=== PATIENT | female | born 1985 | race Caucasian/White ===

== ENCOUNTER 2018-06-10 14:17 | Day surgery (SDC) | payer OTHER | END 2018-06-10 20:55 | disposition home or self-care (01) | LOC: CIR.AMB 14:17 | DX: O02.1 Missed abortion (principal); Z3A.01 Less than 8 weeks gestation of pregnancy ==

== ENCOUNTER 2018-09-15 08:15 | Outpatient (CLI) | payer OTHER | END 2018-09-15 08:19 | disposition home or self-care (01) | LOC: RX STUDY 08:15 | DX: R10.2 Pelvic and perineal pain (principal) ==

== ENCOUNTER 2021-04-24 10:46 | Outpatient (CLI) | payer OTHER | END 2021-04-24 11:48 | disposition home or self-care (01) | LOC: NST 10:46 | PROVIDERS: ATTEND Obstetrics & Gynecology | DX: Z34.83 Encounter for supervision of other normal pregnancy, third trimester (principal) ==

== ENCOUNTER 2021-05-05 09:49 | Outpatient (CLI) | payer OTHER | END 2021-05-05 11:32 | disposition home or self-care (01) | LOC: NST 09:49 | PROVIDERS: ATTEND Obstetrics & Gynecology | DX: Z34.83 Encounter for supervision of other normal pregnancy, third trimester (principal) ==

== ENCOUNTER 2021-05-13 09:22 | Outpatient (CLI) | payer OTHER | END 2021-05-13 10:19 | disposition home or self-care (01) | LOC: NST 09:22 | PROVIDERS: ATTEND Obstetrics & Gynecology | DX: Z34.83 Encounter for supervision of other normal pregnancy, third trimester (principal) ==

== ENCOUNTER 2021-06-03 08:40 | Outpatient (CLI) | payer OTHER | END 2021-06-03 12:56 | disposition home or self-care (01) | LOC: NST 08:40 | PROVIDERS: ATTEND Obstetrics & Gynecology | DX: Z34.83 Encounter for supervision of other normal pregnancy, third trimester (principal) ==

== ENCOUNTER 2021-06-25 00:14 | Inpatient (IN) | payer OTHER ==
[~2021-06-25] VITALS: Ht 152.4 cm; Wt 3.2 kg
[2021-06-25] MEDS ORDERED: LOVENOX40 MG/0.4 SUBCUTANEO (00:33)
[2021-06-25] MEDS ORDERED: PRENATAL CAPLE1 EAC1 PO (00:34)
[2021-06-25] MEDS ORDERED: VALTREX1000 MG PO (00:34)
== END 2021-06-27 11:58 | disposition home or self-care (01) | DRG 787 ==
LOC: LDR 00:14 → OB/GYN 00:14
PROVIDERS: ADMIT Obstetrics & Gynecology; ATTEND Obstetrics & Gynecology
PROC: 4A1HXFZ Monitoring of Products of Conception, Cardiac Rhythm, External Approach (ICD-10-PCS; 2021-06-25)
PROC: 10907ZC Drainage of Amniotic Fluid, Therapeutic from Products of Conception, Via Natural or Artificial Opening (ICD-10-PCS; 2021-06-25)
PROC: 10D00Z1 Extraction of Products of Conception, Low, Open Approach (ICD-10-PCS; principal; 2021-06-25 13:45)
DX: O62.1 Secondary uterine inertia (principal); O98.32 Other infections with a predominantly sexual mode of transmission complicating childbirth; O76 Abnormality in fetal heart rate and rhythm complicating labor and delivery; A60.00 Herpesviral infection of urogenital system, unspecified; O99.824 Streptococcus B carrier state complicating childbirth; Z3A.38 38 weeks gestation of pregnancy; Z37.0 Single live birth

== ENCOUNTER 2024-04-14 15:01 | Outpatient (CLI) | payer OTHER ==
[~2024-04-14 15:01] MED LIST: LOVENOX40 MG/0.4 SUBCUTANEO; PRENATAL CAPLE1 EAC1 PO; VALTREX1000 MG PO
== END 2024-04-14 15:04 | disposition home or self-care (01) ==
LOC: NUCLEAR 15:01
PROVIDERS: ATTEND Internal Medicine Hematology & Oncology
DX: I82.402 Acute embolism and thrombosis of unspecified deep veins of left lower extremity (principal)

== ENCOUNTER 2024-09-14 14:59 | Emergency (ER) | payer OTHER ==
[~2024-09-14] VITALS: Ht 152.4 cm; Wt 68.9 kg
[2024-09-14] MEDS ORDERED: 0.9 % SODIUM CHLORIDE 1,000 ML IV SCH (16:45)
[2024-09-14 17:48] LABS: HEMATOCRIT 39.7 % (36.0-45.00); HEMOGLOBIN 13.4 g/dL (12.0-15.00); MEAN CELL VOLUME 91.4 fL (80.00-100.00); MEAN CORPUSCULAR HEMOGLOBIN 30.8 pg (27.00-32.0); MEAN CORPUSCULAR HGB CONC 33.7 g/dl (32.0-36.0); PLATELET COUNT 265 K/uL (150-450); RED BLOOD COUNT 4.35 M/uL (4.00-6.00)
[2024-09-14 18:22] LABS: ALBUMIN 4.4 gm/dL (3.4-5.0); BILIRUBIN TOTAL 0.69 mg/dL (0.3-1.2); CALCIUM 8.9 mg/dL (8.5-10.1); CREATININE SERUM 0.69 mg/dL (0.55-1.02); GFR 94.72; GLOBULINA 3.9 G/DL (2.4-3.5); POTASSIUM 3.44 mEq/L (3.5-5.1); TOTAL PROTEIN 8.3 gm/dL (6.4-8.2)
[2024-09-14] MEDS ORDERED: KETOROLAC TROMETHAMINE 30 MG VIAL ONE (20:40)
[2024-09-14] MEDS ORDERED: KETOROLAC TROMETHAMINE 30 MG VIAL IV ONE (20:45)
== END 2024-09-14 21:06 | disposition home or self-care (01) ==
LOC: ER 14:59
PROVIDERS: General Practice
DX: R55 Syncope and collapse (principal)